=== PATIENT | female | born 1995 | race Caucasian/White ===

== ENCOUNTER 2018-10-02 20:02 | Emergency (ER) | payer OTHER ==
[2018-10-02] MEDS: ONDANSETRON (ODT) 4 MG TAB ODT (20:50)
[2018-10-02] MEDS: MAGNESIUM CITRATE 300 ML BTL PO (20:50)
[2018-10-02 21:52] LABS: URINE BLOOD (Dip) POC Trace-lysed (NEGATIVE); URINE GLUCOSE (Dip) POC Negative (NEGATIVE); URINE KETONES (Dip) POC Negative (NEGATIVE); URINE LEUKOCYTE EST (Dip) POC Trace (NEGATIVE); URINE NITRITE (Dip) POC Negative (NEGATIVE); URINE TOTAL PROTEIN POC Negative (NEGATIVE)
== END 2018-10-02 23:10 | disposition home or self-care (01) ==
LOC: FTE 20:02
DX: K59.00 Constipation, unspecified (principal); R11.10 Vomiting, unspecified
CPT/HCPCS: 74018; 81003; 81025; 99283-25